=== PATIENT | female | born 1995 | race Caucasian/White ===

== ENCOUNTER 2020-09-05 14:37 | Outpatient (REF) | payer OTHER, SELFPAY ==
[2020-09-05 18:06] LABS: Thyroid Stimulating Hormone 0.61 uIU/mL (0.32-4.0)
[2020-09-06 09:12] LABS: DHEA Sulfate 348 mcg/dL (18-391)
[2020-09-06 09:37] LABS: Prolactin 5.5 ng/mL
[2020-09-09 17:01] LABS: Testosterone, Free 5.2 pg/mL (0.1-6.4); Testosterone, Total 33 ng/dL (2-45)
== END 2020-09-05 14:38 | disposition home or self-care (01) ==
LOC: HO.LAB 14:37
PROVIDERS: Visit Provider Advanced Practice Midwife
DX: N91.2 Amenorrhea, unspecified (principal); N92.6 Irregular menstruation, unspecified; L70.9 Acne, unspecified
CPT/HCPCS: 36415; 81003; 81025; 82627; 83498; 84146; 84402; 84403; 84443; 99212

== ENCOUNTER 2020-09-19 10:31 | Outpatient (REF) | payer OTHER, SELFPAY ==
--- NOTE | ~2020-09-19 | US_ITS ---
EXAMINATION: US PELVIS, COMPLETE CLINICAL INFORMATION: Irregular menstruation COMPARISON: None TECHNIQUE: Transabdominal and transvaginal imaging was performed. FINDINGS: LMP: 08/24/2020 Uterus is retroverted , measuring 6.2 x 3.4 x 4.3 cm. No focal uterine lesion. Endometrial thickness 0.5 cm. Nabothian cysts in the cervix. Right ovary measures 3.9 x 2.3 x 1.8 cm. Volume 8.4 mL. Multiple follicles present. Left ovary measures 3 x 1.9 x 2 cm. Volume 6 mL. Multiple follicles present. Small free fluid in the cul-de-sac. US/US pelvic and transvaginal IMPRESSION: Unremarkable sonographic appearance of the uterus and ovaries.
== END 2020-09-19 10:32 | disposition home or self-care (01) ==
LOC: HO.US 10:31
PROVIDERS: Visit Provider Advanced Practice Midwife
DX: N92.6 Irregular menstruation, unspecified (principal); L70.9 Acne, unspecified; N91.2 Amenorrhea, unspecified
CPT/HCPCS: 76830; 76856

== ENCOUNTER → 2020-09-24 11:20 | Outpatient (BNVA) | payer OTHER, SELFPAY | PROVIDERS: Visit Provider Advanced Practice Midwife ==

== ENCOUNTER → 2021-08-04 14:20 | Outpatient (BNVA) | payer OTHER, SELFPAY | PROVIDERS: Visit Provider Advanced Practice Midwife | DX: Z32.01 Encounter for pregnancy test, result positive (principal); N92.6 Irregular menstruation, unspecified; E28.2 Polycystic ovarian syndrome | CPT/HCPCS: 81025; 99212 ==

== ENCOUNTER 2021-08-08 11:06 | Outpatient (REF) | payer OTHER, SELFPAY ==
--- NOTE | ~2021-08-08 | US_ITS ---
EXAMINATION: OBSTETRICAL ULTRASOUND, FIRST TRIMESTER HISTORY: 26-year-old with unknown LMP LMP: Unknown COMPARISON: None TECHNIQUE: Real time transabdominal imaging with color and M-mode Doppler. FINDINGS: A single, live IUP CRL of 20.3 mm c/w 8.5wks is noted. Heart Rate: 167 beats per minute. Both maternal ovaries are seen and appear normal. GESTATIONAL AGE: 1. GA from LMP: N/A wks 2. GA from AUA: 8.5 wks ESTIMATED DATE OF DELIVERY: 1. KENYATTA from LMP: N/A 2. KENYATTA from AUA: 03/15/2022 US/US OB <= 14 weeks fetus IMPRESSION: 1. A single live IUP 2. CRL is consistent with 8.5 weeks of gestation giving her an KENYATTA of 03/15/2022 3. Normal ovaries Discussion: No specific ultrasound followup appears needed at this time. The patient was advised that ultrasound cannot guarantee the of a normal infant. Thank you very much for this referral. This note was generated with a voice recognition program. Please excuse any errors which may have been overlooked during my review of this note. Sometimes these errors may affect the content or meaning of a given sentence.
== END 2021-08-08 11:07 | disposition home or self-care (01) ==
LOC: HO.US 11:06
PROVIDERS: Visit Provider Advanced Practice Midwife
DX: Z36.87 Encounter for antenatal screening for uncertain dates (principal)
CPT/HCPCS: 76801

== ENCOUNTER → 2021-08-29 13:47 | Outpatient (BNVA) | payer OTHER, SELFPAY | PROVIDERS: Visit Provider Advanced Practice Midwife | DX: O26.91 Pregnancy related conditions, unspecified, first trimester (principal); Z3A.08 8 weeks gestation of pregnancy | CPT/HCPCS: Q3014 ==